=== PATIENT | female | born 1960 | race Caucasian/White ===

== ENCOUNTER → 2021-02-24 14:28 | Outpatient (CLI) | payer OTHER, SELFPAY ==
[2021-02-24 15:14] LABS: Add Manual Diff / Slide Review NO; Basophils Absolute Auto 100 /uL (0-100); Basophils Percent Auto 0.8 % (0-2); Eosinophils Absolute Auto 400 /uL (0-450); Eosinophils Percent Auto 4.4 % (2-4); Hematocrit 43.6 % (36-46); Hemoglobin 14.8 g/dL (12.0-16.0); Lymphocytes Absolute Auto 2900 /uL (1100-4500); Lymphocytes Percent Auto 29.6 % (25-40); Mean Corpuscular HGB Conc 33.8 % (30-36); Mean Corpuscular Hemoglobin 31.2 PG (26-34); Mean Corpuscular Volume 92.4 fL (80-100); Monocytes Absolute Auto 700 /uL (0-900); Monocytes Percent Auto 7.2 % (3-14); Neutrophils Absolute Auto 5700 /uL (1500-7000); Platelet Count 339 X10^3/uL (150-400); Red Blood Cell Count 4.72 X10^6/uL (4.0-5.2); Red Cell Distribution Width 13.4 % (11.6-14.8); White Blood Cell Count 9.8 X10^3/uL (4.5-11.0)
[2021-02-24 15:24] LABS: Hemoglobin A1C% w Est Avg Glu 4.4 % (4.0-6.0)
[2021-02-24 15:40] LABS: Alanine Aminotransferase 35 IU/L (<35); Albumin 4.1 g/dL (3.5-5.0); Albumin Globulin Ratio 1.9 (1.0-2.8); Alkaline Phosphatase 97 U/L (38-126); Aspartate Aminotransferase 24 IU/L (14-36); BUN Creatinine Ratio 15.2 (6-22); Bilirubin Total 0.4 mg/dL (0.2-1.3); Blood Urea Nitrogen 12 mg/dL (7-17); Calcium 9.6 mg/dL (8.4-10.2); Carbon Dioxide 29 mmol/L (22-32); Chloride 106 mmol/L (98-107); Cholesterol 168 mg/dL (140-199); Estimated Glomerular Filt Rate > 60.0 mL/min (>60); Globulin 2.2 g/dL (1.7-4.1); Glucose 77 mg/dL (80-110); HDL Cholesterol 51 mg/dL (40-60); HEMOLYSIS < 15 (0-50); LDL Cholesterol Calculated 92 mg/dL (<100); Sodium 140 mmol/L (137-145); Total Protein 6.3 g/dL (6.3-8.2); Triglycerides 124 mg/dL (35-150)
[2021-02-24 16:05] LABS: Thyroid Stimulating Hormone 2.23 uIU/mL (0.47-4.68)
== END ==
PROVIDERS: Referring Provider Family Medicine; Visit Provider Family Medicine
DX: Z00.00 Encounter for general adult medical examination without abnormal findings (principal)
CPT/HCPCS: 36415; 80053; 80061; 83036; 84443; 85025

== ENCOUNTER 2021-08-11 09:15 | Emergency (ER) | payer OTHER, SELFPAY ==
[2021-08-11] VITALS (13 sets, daily range): BP systolic 174–232; BP diastolic 76–102; PULSE 58–74; RESP 15–36; TEMP 36.6–37.1; O2SAT 95–99; BMI 33.6
--- NOTE | 2021-08-11 09:24 | DI.RAD.S_ITS ---
PROCEDURE: XR CHEST 1V INDICATIONS: chest pain TECHNIQUE: One view of the chest was acquired. COMPARISON: None. FINDINGS: Surgical changes and devices: None. Lungs and pleura: Lungs are clear. No pleural effusions or pneumothorax. Mediastinum: Mediastinal contours appear normal. Heart size is normal. Bones and chest wall: No suspicious bony lesions. Overlying soft tissues appear unremarkable. IMPRESSION: No acute cardiopulmonary disease. Dictated by: Alex Lloyd M.D. on 08/11/2021 at 10:04 Approved by: Alex Lloyd M.D. on 08/11/2021 at 10:04
--- NOTE | 2021-08-11 09:32 | ED.GENADULT ---
HPI - General Adult General Chief complaint: Hypertension Stated complaint: High BP Time Seen by Provider: 08/11/21 09:23 Source: patient Mode of arrival: Ambulatory Limitations: no limitations History of Present Illness HPI narrative: This is a 60-year-old female comes emergency department with complaint of elevated blood pressure for the past 3 days. Patient states she has been averaging 160 systolic for the past month but for the past 3 days has had number in the 200+ range systolic. Patient states she has also had headache for the past 3 days which has not resolved which made her quite anxious so she came in for evaluation. She has a history of hypertension she is on lisinopril as well as metoprolol in the morning and evening took both of these recently and has been taking them regularly. She is also on Celexa, Abilify, Adderall, levothyroxine and D3 an iron supplements. Patient notes that her Adderall was bumped up from 25 mg daily to a 10 mg booster in the afternoons but that she only takes that twice a week. She has not been taking the 10 mg dosage for the past week but is taking her 25 mg Adderall regularly. She has a history gastric bypass, a LINX device in her esophagus and a estephanie in her femur. No prior cardiac surgeries, ablation so or interventions. She smokes 2 cigarettes daily but stopped 2 days ago. One alcoholic drink weekly and THC but no other recreational drugs. She denies any drug allergies. Her primary care is Dr. Malcolm. Related Data Home Medications Medication Instructions Recorded Confirmed aripiprazole 15 mg tablet (Abilify) 15 mg PO DAILY 08/10/21 08/10/21 cholecalciferol (vitamin D3) 125 125 mcg PO DAILY 08/10/21 08/10/21 mcg (5,000 unit) capsule citalopram 40 mg tablet (Celexa) 40 mg PO DAILY tab 08/10/21 08/10/21 dextroamphetamine-amphetamine 10 10 mg PO DAILY 08/10/21 08/10/21 mg tablet (Adderall) diazepam 5 mg tablet (Valium) 5 mg PO BEDTIME PRN 08/10/21 08/10/21 ferrous sulfate 325 mg (65 mg 325 mg PO BID 08/10/21 08/10/21 iron) tablet (Feosol) liothyronine 5 mcg tablet 10 mcg PO DAILY 08/10/21 08/10/21 lisinopril 40 mg tablet 40 mg PO DAILY 08/10/21 08/10/21 metoprolol succinate 50 mg 50 mg PO DAILY 08/10/21 08/10/21 tablet,extended release 24 hr topiramate 25 mg capsule 25 mg PO DAILY 08/10/21 08/10/21 sprinkle,extended release 24 hr Allergies Allergy/AdvReac Type Severity Reaction Status Date / Time No Known Drug Allergies Allergy Verified 08/11/21 09:24 Review of Systems Review of Systems ROS Unobtainable: All systems reviewed & are unremarkable except as noted in HPI and below Patient History Social History Smoking Status: Current every day smoker Smoking Status: Current every day smoker alcohol intake frequency: holidays/special occasions only Substance Use Type: marijuana Exam Narrative Exam Narrative: GEN: well nourished, well appearing female, alert and oriented x 3, patient appears to be in mild distress. HEENT: Atraumatic, pupils are equal round reactive to light, extraocular movements are intact, nares are clear. Throat is clear without any exudates, erythema, tonsillar enlargement or uvular deviation, no facial droop. HEART: Regular rate and rhythm without murmur, clicks, rubs. LUNGS:Lungs clear to auscultation, no wheezes, rales, crackles, chest moves symmetrically ABD:bowel sounds normal, soft, non-tender, no guarding, rebound, rigidity, no masses noted, no hepatosplenomegaly, no bruit or pulsatile mass. :No CVA tenderness MSCL: Non-tender, no muscle atrophy, muscles strength 5/5 upper and lower extremities, full range of motion, normal gait NEURO:CN 2-12 intact, sensation normal Initial Vital Signs Initial Vital Signs: Vital Signs Temperature 98.7 F 08/11/21 09:19 Pulse Rate 68 08/11/21 09:19 Respiratory Rate 22 08/11/21 09:19 Blood Pressure 232/102 H 08/11/21 09:19 Pulse Oximetry 99 08/11/21 09:19 Course Orders Ordered: Discontinued Medications Hydralazine HCl (Hydralazine 10 Mg Tablet) 10 mg PO NOW ONE Stop: 08/11/21 10:20 Last Admin: 08/11/21 10:26 Dose: 10 mg Documented by: JESE Reevaluation(s) Reevaluation #1: Patient's blood pressure has been intervally up and down between 180 and 220s. Given a single dose of oral antihypertensive in the department and has been more persistently trending down words. Head CT, EKG, chest x-ray and labs reviewed with the patient. We discussed she is on Adderall could potentially cause some hypertension and plan to take a break over the weekend to see if this affects her blood pressure at all. She has had a somewhat recent increase in her dosage but not consistently. If her blood pressure continues to stay elevated at this time plan to have her increase her metoprolol to 1 full tablet twice daily. She normally takes 1 tablet in the morning and half tablet in the evenings. Vital Signs Vital signs: Vital Signs - 8 hr 08/11/21 11:01 08/11/21 11:06 08/11/21 11:13 Temperature 98 F Pulse Rate 74 70 65 Respiratory Rate 18 17 Blood Pressure 174/76 H 174/76 H 174/76 H Pulse Oximetry 98 98 Medical Decision Making Lab Data Result diagrams: 08/11/21 09:30 08/11/21 09:30 Labs: Lab Results 08/11/21 08/11/21 08/11/21 Range/Units 09:30 09:30 09:30 WBC 9.4 (4.5-11.0) X10^3/uL RBC 4.59 (4.0-5.2) X10^6/uL Hgb 14.5 (12.0-16.0) g/dL Hct 41.8 (36-46) % MCV 91.1 (80-100) fL MCH 31.6 (26-34) PG MCHC 34.7 (30-36) % RDW 13.4 (11.6-14.8) % Plt Count 260 (150-400) X10^3/uL Neut % (Auto) 65.6 (50-75) % Lymph % (Auto) 25.5 (25-40) % Carroll % (Auto) 6.1 (3-14) % Eos % (Auto) 1.9 L (2-4) % Baso % (Auto) 0.9 (0-2) % Neut # (Auto) 6100 (4038-3759) /uL Lymph # (Auto) 2400 (5142-9102) /uL Carroll # (Auto) 600 (0-900) /uL Eos # (Auto) 200 (0-450) /uL Baso # (Auto) 100 (0-100) /uL PT 10.5 (10.1-12.7) SECONDS INR 1.0 (0.9-1.3) APTT 33 (26.4-36.2) SECONDS Sodium 142 (137-145) mmol/L Potassium 4.0 (3.4-5.1) mmol/L Chloride 110 H (98-107) mmol/L Carbon Dioxide 26 (22-32) mmol/L BUN 19 H (7-17) mg/dL Creatinine 0.73 (0.52-1.04) mg/dL Estimated GFR > 60.0 (>60) mL/min BUN/Creatinine Ratio 26.0 H (6-22) Glucose 94 (80-110) mg/dL Calcium 9.1 (8.4-10.2) mg/dL Magnesium 2.1 (1.6-2.3) mg/dL Total Bilirubin 0.6 (0.2-1.3) mg/dL AST 30 (14-36) IU/L ALT 33 (<35) IU/L Alkaline Phosphatase 78 (38-126) U/L Total Creatine Kinase 56 (30-135) U/L CK-MB (CK-2) TNP CK-MB (CK-2) Rel Index TNP Troponin I < 0.012 (0.01-0.034) ng/mL Total Protein 7.0 (6.3-8.2) g/dL Albumin 4.4 (3.5-5.0) g/dL Globulin 2.6 (1.7-4.1) g/dL Albumin/Globulin Ratio 1.7 (1.0-2.8) Lipase 96 (23-300) U/L Imaging Data Chest x-ray: Radiologist's Impression: Martha White??60??F??1960 ? Allergy/Adv: No Known Drug Allergies (More??) Close Head CT (Signed) Oneida Lloyd - 08/11/21 Chest X-Ray (Signed) Oneida Lloyd - 08/11/21 [facility] [address] [address] XRay Report Signed Patient: Martha White MR#: [id number] : 1960 Acct:[id number] Age/Sex: 60 / F Date of Service: 08/11/21 Loc: ED Accession Number: [id number] ?? Procedure: XR chest 1V Ordering Provider: Rocio Almonte D.O. PROCEDURE:? XR CHEST 1V ? INDICATIONS:? chest pain ? TECHNIQUE:? One view of the chest was acquired.? ? COMPARISON:? None. ? FINDINGS:? ? Surgical changes and devices:? None.? ? Lungs and pleura:? Lungs are clear.? No pleural effusions or pneumothorax.? ? Mediastinum:? Mediastinal contours appear normal.? Heart size is normal.? ? Bones and chest wall:? No suspicious bony lesions.? Overlying soft tissues appear unremarkable.? ? IMPRESSION:? No acute cardiopulmonary disease. ? ? Dictated by: Alex Lloyd M.D. on 08/11/2021 at 10:04 ? ? Approved by: Alex Lloyd M.D. on 08/11/2021 at 10:04?? CT scan - head: Radiologist's Impression: [place] [address] CT Scan Report Signed Patient: Martha White MR#: [id number] : 1960 Acct:[id number] Age/Sex: 60 / F Date of Service: 08/11/21 Loc: ED Accession Number: [id number] ?? Procedure: CT head/brain wo con Ordering Provider: Rocio Almonte D.O. PROCEDURE:? CT HEAD/BRAIN WO CON ? INDICATIONS:? rocha, htn ? TECHNIQUE:? Noncontrast 4.5 mm thick angled axial sections acquired from the foramen magnum to the vertex, with coronal and sagittal reformats.? For radiation dose reduction, the following was used:? automated exposure control, adjustment of mA and/or kV according to patient size.? ? COMPARISON:? None. ? FINDINGS:? Image quality:? Excellent.? ? CSF spaces:? Basal cisterns are patent.? No extra-axial fluid collections.? The ventricles are symmetric in size and shape.? ? Brain:? No intracranial bleeds or masses.? There is mild cerebral volume loss for age, with resultant ventricular and sulcal prominence.? There are mild periventricular and deep white matter chronic small vessel ischemic changes.? There is intracranial internal carotid artery atherosclerosis.? ? Skull and face:? Calvarium and visualized facial bones appear intact, without suspicious lesions.? ? Sinuses:? There is a air-fluid level in the left maxillary sinus.? Mastoid? are clear.? ? IMPRESSION:? ? 1. No acute intracranial abnormalities. ? 2. Cerebral volume loss and chronic microvascular ischemic changes. ? 3.? An air-fluid level in the left maxillary sinus suspicious for sinusitis.? ? Dictated by: Alex Lloyd M.D. on 08/11/2021 at 10:02 ? ? Approved by: Alex Lloyd M.D. on 08/11/2021 at 10:04?? ECG Data Attestation: I personally reviewed and interpreted this ECG as follows: Prior ECG tracings: not available for review Interpretation: Sinus bradycardia rate of 58 ME 158, QRS is 76 and QTC 449. No acute ST elevation depression appreciated. No priors available for comparison. MDM Narrative Medical decision making narrative: This is a 60-year-old female who comes with complaint of hypertension and headache for the past 3 days. Patient states she has pain getting systolic in the 200 range with a diastolic in the 100 range fairly consistently. She states her average is typically closer to 160 systolic. Patient is on antihypertensives, she is also on Adderall she had a dosage increase in the last couple months but does not take it consistently. Patient's head CT, chest x-ray, EKG and labs do not show any end-organ damage. Blood pressure improved with a single dose of oral antihypertensives. At this time plan to adjust patient's medications but would like her to take a break over the weekend from her Adderall to see if this affects her BP at all. Patient feels comfortable with this plan. She also quit smoking recently which may be contributing as well. Return precautions discussed. Discharge Plan Departure Patient Disposition: Home Clinical Impression: Hypertension Instructions: DI for High Blood Pressure Activity Restrictions/Additional Instructions: Follow-up with your physician for recheck. Please call for an appointment. Adderal can cause hypertension and may need to be adjusted or changed to an alternative medication over the intermediate manager if your blood pressure is resistant to medication management. Try stopping your adderal over the weekend and see if your BP improves without medication changes. If your blood pressure continues to be elevated increase your metoprolol to one whole tablet in the morning and one whole tablet in the evening. Please return for severe headaches, passing out, new chest pain or shortness of breath, persistent vomiting, new swelling in your extremities or other new or concerning symptoms Prescriptions: No Action ferrous sulfate [Feosol] 325 mg (65 mg iron) tablet 325 mg PO BID 0RF cholecalciferol (vitamin D3) 125 mcg (5,000 unit) capsule 125 mcg PO DAILY 0RF lisinopril 40 mg tablet 40 mg PO DAILY 0RF metoprolol succinate 50 mg tablet extended release 24 hr 50 mg PO DAILY 0RF aripiprazole [Abilify] 15 mg tablet 15 mg PO DAILY 0RF citalopram [Celexa] 40 mg tablet 40 mg PO DAILY 0RF diazepam [Valium] 5 mg tablet 5 mg PO BEDTIME PRN0RF topiramate 25 mg cap,sprinkle,ER 24hr dose pack 25 mg PO DAILY 0RF liothyronine 5 mcg tablet 10 mcg PO DAILY 0RF dextroamphetamine-amphetamine [Adderall] 10 mg tablet 10 mg PO DAILY 0RF Referrals: Fawad Malcolm MD [Primary Care Provider] -
--- NOTE | 2021-08-11 09:33 | DI.CT.S_ITS ---
PROCEDURE: CT HEAD/BRAIN WO CON INDICATIONS: rocha, htn TECHNIQUE: Noncontrast 4.5 mm thick angled axial sections acquired from the foramen magnum to the vertex, with coronal and sagittal reformats. For radiation dose reduction, the following was used: automated exposure control, adjustment of mA and/or kV according to patient size. COMPARISON: None. FINDINGS: Image quality: Excellent. CSF spaces: Basal cisterns are patent. No extra-axial fluid collections. The ventricles are symmetric in size and shape. Brain: No intracranial bleeds or masses. There is mild cerebral volume loss for age, with resultant ventricular and sulcal prominence. There are mild periventricular and deep white matter chronic small vessel ischemic changes. There is intracranial internal carotid artery atherosclerosis. Skull and face: Calvarium and visualized facial bones appear intact, without suspicious lesions. Sinuses: There is a air-fluid level in the left maxillary sinus. Mastoid are clear. IMPRESSION: 1. No acute intracranial abnormalities. 2. Cerebral volume loss and chronic microvascular ischemic changes. 3. An air-fluid level in the left maxillary sinus suspicious for sinusitis. Dictated by: Alex Lloyd M.D. on 08/11/2021 at 10:02 Approved by: Alex Lloyd M.D. on 08/11/2021 at 10:04
--- NOTE | 2021-08-11 09:41 | PC.NURSE ---
reports RUSSELL with this hypertension episode over last couple days. pain 7-8/10 denies nausea, blurry vision or vison changes. FAST negative
[2021-08-11 09:49] LABS: Prothrombin Time 10.5 SECONDS (10.1-12.7)
[2021-08-11 09:50] LABS: Add Manual Diff / Slide Review NO; Basophils Absolute Auto 100 /uL (0-100); Basophils Percent Auto 0.9 % (0-2); Eosinophils Absolute Auto 200 /uL (0-450); Eosinophils Percent Auto 1.9 % (2-4); Hematocrit 41.8 % (36-46); Hemoglobin 14.5 g/dL (12.0-16.0); Lymphocytes Absolute Auto 2400 /uL (1100-4500); Lymphocytes Percent Auto 25.5 % (25-40); Mean Corpuscular HGB Conc 34.7 % (30-36); Mean Corpuscular Hemoglobin 31.6 PG (26-34); Mean Corpuscular Volume 91.1 fL (80-100); Monocytes Absolute Auto 600 /uL (0-900); Monocytes Percent Auto 6.1 % (3-14); Neutrophils Absolute Auto 6100 /uL (1500-7000); Neutrophils Percent Auto 65.6 % (50-75); Platelet Count 260 X10^3/uL (150-400); Red Blood Cell Count 4.59 X10^6/uL (4.0-5.2); Red Cell Distribution Width 13.4 % (11.6-14.8); White Blood Cell Count 9.4 X10^3/uL (4.5-11.0)
[2021-08-11 09:52] LABS: PTT Partial Thromboplastin Tim 33 SECONDS (26.4-36.2)
[2021-08-11 09:58] LABS: Alanine Aminotransferase 33 IU/L (<35); Albumin 4.4 g/dL (3.5-5.0); Albumin Globulin Ratio 1.7 (1.0-2.8); Alkaline Phosphatase 78 U/L (38-126); Aspartate Aminotransferase 30 IU/L (14-36); Bilirubin Total 0.6 mg/dL (0.2-1.3); Blood Urea Nitrogen 19 mg/dL (7-17); Calcium 9.1 mg/dL (8.4-10.2); Carbon Dioxide 26 mmol/L (22-32); Chloride 110 mmol/L (98-107); Creatine Kinase 56 U/L (30-135); Estimated Glomerular Filt Rate > 60.0 mL/min (>60); Globulin 2.6 g/dL (1.7-4.1); Glucose 94 mg/dL (80-110); HEMOLYSIS 19 (0-50); Lipase 96 U/L (23-300); Magnesium 2.1 mg/dL (1.6-2.3); Sodium 142 mmol/L (137-145)
[2021-08-11 10:07] LABS: Troponin I < 0.012 ng/mL (0.01-0.034)
[2021-08-11] MEDS: HYDRALAZINE 10 MG TABLET PO (10:26)
== END 2021-08-11 11:13 | disposition home or self-care (01) ==
PROVIDERS: Emergency Provider Emergency Medicine; PCP Family Medicine
DX: I10 Essential (primary) hypertension (principal); R51.9 Headache, unspecified; F17.200 Nicotine dependence, unspecified, uncomplicated
CPT/HCPCS: 36415; 70450; 71045; 80053; 82550; 83690; 83735; 84484; 85025; 85610; 85730; 93005; 99284

== ENCOUNTER 2022-01-09 10:49 | Emergency (ER) | payer OTHER, SELFPAY ==
[2022-01-09 11:19] VITALS: BP 177/85; PULSE 62; RESP 16; TEMP 36.3; O2SAT 99; BMI 34.7
--- NOTE | 2022-01-09 11:26 | DI.RAD.S_ITS ---
PROCEDURE: XR KNEE RT 3V INDICATIONS: Right knee pain TECHNIQUE: 3 views of the knee were acquired. COMPARISON: None. FINDINGS: Bones: No fractures or dislocations. No suspicious bony lesions. Femoral intramedullary estephanie. Soft tissues: No joint effusion. No suspicious soft tissue calcifications. IMPRESSION: No evidence acute bony abnormality of the right knee. If clinical suspicion and/or symptoms persist, further assessment with repeat plain films, or advanced imaging (e.g., CT, MRI, or bone scan) may be helpful for further assessment. Dictated by: Jasiel Mason M.D. on 01/09/2022 at 12:00 Approved by: Jasiel Mason M.D. on 01/09/2022 at 12:01
--- NOTE | 2022-01-09 11:27 | ED.EXTPRO ---
HPI - Extremity Problem General Chief complaint: Extremity Problem,Nontraumatic Stated complaint: HURT RT KNEE YESTERDAY Time Seen by Provider: 01/09/22 11:24 Source: patient Mode of arrival: Wheelchair History of Present Illness HPI Narrative: 61F daily smoker with history of hypertension presents with significant right knee pain over the past day. She denies any significant injury but does state that she was walking her dog yesterday and over the course of the night developed increasing pain. She denies numbness or tingling. She states the pain is worse with ambulation and improves with rest. She does complain of some moderate swelling but denies any redness, warmth or red streaks. She is had chronic knee pain and states that previously she had improved with steroid injections. She does have an orthopedist down at [facility] in [place]. She is otherwise well and free of complaint Related Data Home Medications Medication Instructions Recorded Confirmed aripiprazole 15 mg tablet (Abilify) 15 mg PO DAILY 08/10/21 08/10/21 cholecalciferol (vitamin D3) 125 125 mcg PO DAILY 08/10/21 08/10/21 mcg (5,000 unit) capsule citalopram 40 mg tablet (Celexa) 40 mg PO DAILY 08/10/21 08/10/21 dextroamphetamine-amphetamine 10 10 mg PO DAILY 08/10/21 08/10/21 mg tablet (Adderall) diazepam 5 mg tablet (Valium) 5 mg PO BEDTIME PRN 08/10/21 08/10/21 ferrous sulfate 325 mg (65 mg 325 mg PO BID 08/10/21 08/10/21 iron) tablet (Feosol) liothyronine 5 mcg tablet 10 mcg PO DAILY 08/10/21 08/10/21 lisinopril 40 mg tablet 40 mg PO DAILY 08/10/21 08/10/21 metoprolol succinate 50 mg 50 mg PO DAILY 08/10/21 08/10/21 tablet,extended release 24 hr topiramate 25 mg capsule 25 mg PO DAILY 08/10/21 08/10/21 sprinkle,extended release 24 hr Previous Rx's Medication Instructions Recorded hydrocodone 5 mg-acetaminophen 325 1 tab PO Q4-6H PRN pain #10 tabs 01/09/22 mg tablet Allergies Allergy/AdvReac Type Severity Reaction Status Date / Time No Known Drug Allergies Allergy Verified 01/09/22 11:32 Review of Systems Review of Systems Narrative: GENERAL: Denies chills, fatigue, malaise, fever, sweats. HEENT: Denies sinus pain, ear pain, sore throat, difficulty swallowing, dizziness. RESPIRATORY: Denies dyspnea, cough, wheezing, hemoptysis, sputum. CARDIOVASCULAR: Denies chest pain, palpitations, orthopnea, edema, GASTROINTESTINAL: Denies nausea, vomiting, abdominal pain, diarrhea, constipation, melena. : Denies dysuria, frequency, incontinence, hematuria, urinary retention. MUSCULOSKELETAL: See HPI SKIN: Denies rash, skin lesions, or other NEUROLOGIC: Denies weakness, headache, numbness, change in speech, confusion, seizures, incoordination. PSYCHIATRIC: No concerning psychosocial issues. 12 point review of systems is negative except for those stated above Patient History Social History Smoking Status: Current every day smoker Smoking Status: Current every day smoker alcohol intake frequency: 0-2 drinks per day Substance Use Type: marijuana Exam Narrative Exam Narrative: GENERAL: [61] year old patient appears stated age. Well-developed patient, in mild distress. HEAD: Atraumatic. Normocephalic. EYES: Pupils equal round and reactive. Extraocular motions intact. No scleral icterus. No injection or drainage. ENT: Nose without bleeding, purulent drainage. Throat without erythema, tonsillar hypertrophy or exudate. Airway patent. NECK: Trachea midline. Non tender CARDIOVASCULAR: Regular rate and rhythm without murmurs, gallops, or rubs. RESPIRATORY: Clear to auscultation. Breath sounds equal bilaterally. No wheezes, rales, or rhonchi. GASTROINTESTINAL: Abdomen soft, non-tender, nondistended. EXTREMITIES: mild effusion, generally painful to touch, no redness, warmth or obvious ligamentous laxity BACK: Nontender without deformity or crepitance. No flank tenderness. NEURO: AOx3. SKIN: No rash or erythema of visible areas Initial Vital Signs Initial Vital Signs: Vital Signs Temperature 97.4 F L 01/09/22 11:19 Pulse Rate 62 01/09/22 11:19 Respiratory Rate 16 01/09/22 11:19 Blood Pressure 177/85 H 01/09/22 11:19 Pulse Oximetry 99 01/09/22 11:19 Oxygen Delivery Method 01/09/22 11:19 Procedures Orthopedic Splinting/Casting Injury #1: Lower Extremity Injury Location: knee Lower Extremity Immobilizer: knee immobilizer Post splinting neuro exam: intact Post splinting vascular exam: intact Placed by: Nursing Course Orders Ordered: ED Orders 01/09/22 11:26 XR knee RT 3V Stat 01/09/22 12:07 US periph venous low extrem rt Stat Vital Signs Vital signs: Vital Signs - 8 hr 01/09/22 11:19 Temperature 97.4 F L Pulse Rate 62 Respiratory Rate 16 Blood Pressure 177/85 H Pulse Oximetry 99 Oxygen Delivery Method Room Air MDM - Extremity (Nontraumatic) Imaging Data Extremity x-ray #1: Radiologist's Impression: Martha White??61??F??1960 ? Allergy/Adv: No Known Drug Allergies (More??) Close Knee X-Ray (Signed) Jasiel Mason - 01/09/22 EKG Rpt. 08/11/[address] (Signed) Oneida Lloyd - 08/11/21 Chest X-Ray (Signed) Oneida Lloyd - 08/11/21 Launch?[place] [address] XRay Report Signed Patient: Martha White MR#: [id number] : 1960 Acct:[id number] Age/Sex: 61 / F Date of Service: 01/09/22 Loc: ED Accession Number: [id number] ?? Procedure: XR knee RT 3V Ordering Provider: Werner Byrnes D.O. PROCEDURE:? XR KNEE RT 3V ? INDICATIONS:? Right knee pain ? TECHNIQUE:? 3 views of the knee were acquired.? ? COMPARISON:? None. ? FINDINGS:? ? Bones:? No fractures or dislocations.? No suspicious bony lesions.? Femoral intramedullary estephanie. ? Soft tissues:? No joint effusion.? No suspicious soft tissue calcifications.? ? ? IMPRESSION:? No evidence acute bony abnormality of the right knee. ? If clinical suspicion and/or symptoms persist, further assessment with repeat plain films, or advanced imaging (e.g., CT, MRI, or bone scan) may be helpful for further assessment. ? Dictated by: Jasiel Mason M.D. on 01/09/2022 at 12:00 ? ? Approved by: Jasiel Mason M.D. on 01/09/2022 at 12:01 ? US - DVT: Radiologist's Impression: No DVT, small Ortiz's Cyst noted Discharge Plan Departure Patient Disposition: Home Clinical Impression: Knee joint injury, Ortiz cyst Instructions: DI for Knee Pain Activity Restrictions/Additional Instructions: *You have been diagnosed with [acute on chronic right knee pain with small Ortiz cyst and possible meniscal injury] *What to do: *Please continue to take your regular medications as directed. [ x] New medication prescriptions sent to your pharmacy: [ [facility] in [place]] [ ] New medication written as a paper prescription [ ] No new medications given * as we discussed I have included contact information for local orthopedics, please call the office later today and let them know you were seen in the emergency department and we would like you seen in follow-up for evaluation of your knee *If you do not have a primary care provider please contact the [facility] Resource line at [phone]. They will ask some questions about your medical history and help get you set up with a doctor in the community. *Return to Emergency Department if you should have any new, worsening or concerning symptoms, such as [fever greater than 101 F, shaking chills, worsening pain, persistent vomiting or other bothersome symptoms] You have been prescribed a short course of narcotic medications. These are potentially dangerous and addictive medications that should be used carefully. While on these medications you cannot drive or operate heavy machinery. Additionally, you cannot sign legal documents or perform any duties such as this. Many people get constipated on narcotic medications so it would be advisable to discuss stool softeners with the pharmacist when you order picker/assembler your prescription. Please understand that we cannot provide further refills of narcotics or controlled substances through the ED and your pain management will need to be through your Primary Care Provider Prescriptions: New hydrocodone-acetaminophen 5-325 mg tablet 1 tab PO Q4-6H PRN (Reason: pain) Qty: 10 0RF No Action ferrous sulfate [Feosol] 325 mg (65 mg iron) tablet 325 mg PO BID cholecalciferol (vitamin D3) 125 mcg (5,000 unit) capsule 125 mcg PO DAILY lisinopril 40 mg tablet 40 mg PO DAILY metoprolol succinate 50 mg tablet extended release 24 hr 50 mg PO DAILY aripiprazole [Abilify] 15 mg tablet 15 mg PO DAILY citalopram [Celexa] 40 mg tablet 40 mg PO DAILY diazepam [Valium] 5 mg tablet 5 mg PO BEDTIME PRN topiramate 25 mg cap,sprinkle,ER 24hr dose pack 25 mg PO DAILY liothyronine 5 mcg tablet 10 mcg PO DAILY dextroamphetamine-amphetamine [Adderall] 10 mg tablet 10 mg PO DAILY Referrals: Fawad Malcolm MD [Primary Care Provider] - Bobo Edwards MD [Physician] - Visit Report Forms: Patient Portal/API
--- NOTE | 2022-01-09 12:07 | DI.US.S_ITS ---
PROCEDURE: US PERIPH VENOUS LOW EXTREM RT INDICATIONS: KNEE PAIN TECHNIQUE: Real-time imaging, as well as color and pulse Doppler interrogation, were performed of the lower extremity deep veins from the inguinal ligament to the popliteal fossa. COMPARISON: None. FINDINGS: The common femoral, femoral and popliteal veins are normally compressible, and free of intraluminal thrombus. Color and pulse Doppler demonstrate normal phasic intraluminal flow. There is normal augmentation response to distal compression maneuver. Note is made of a Ortiz's cyst measuring 3.5 x 0.8 x 1.2 cm. IMPRESSION: Negative for deep venous thrombosis. Dictated by: Frank Escalante M.D. on 01/09/2022 at 11:43 Approved by: Frank Escalante M.D. on 01/09/2022 at 11:43
== END 2022-01-09 13:08 | disposition home or self-care (01) ==
PROVIDERS: Emergency Provider Emergency Medicine; PCP Family Medicine
DX: M71.21 Synovial cyst of popliteal space [Baker], right knee (principal)
CPT/HCPCS: 73562; 93971; 99282; 99283

== ENCOUNTER → 2023-07-04 07:44 | Outpatient (CLI) | payer OTHER, SELFPAY ==
--- NOTE | 2023-07-04 07:45 | DI.MG.S_ITS ---
BILATERAL DIGITAL SCREENING MAMMOGRAM 3D/2D WITH CAD: 07/04/2023 CLINICAL: Routine screening. Family history of breast cancer. Comparison is made to exams dated: 06/03/2022 mammogram, 04/25/2021 mammogram, and 12/31/2019 mammogram - Outside facility. There are scattered areas of fibroglandular density in both breasts (category b / 25%-50% glandular tissue). Current study was also evaluated with a Computer Aided Detection (CAD) system. There is a biopsy clip in both breasts. No significant masses, calcifications, or other findings are seen in either breast. There has been no significant interval change. IMPRESSION: NEGATIVE There is no mammographic evidence of malignancy. A 1 year screening mammogram is recommended. Based on the Tyrer Cuzick model (a risk assessment model) the patient's lifetime risk is 14.6% and her 10 year risk is 6.5%. According to the ACR, ACS, and NCCN guidelines, an annual breast MRI exam along with mammogram is recommended if the patient's lifetime risk is 20% or greater. This exam was interpreted at Station ID: [id number]. NOTE: For mammograms, a report in lay terms will be sent to the patient. Approximately 15% of breast malignancies will not be visualized mammographically. In the management of a palpable breast mass, a negative mammogram must not discourage biopsy of a clinically suspicious lesion. Electronically Signed By: Curt rojo/harry:07/04/2023 15:21:06 letter sent: Normal Exam ACR BI-RADS Category 1: Negative [id number]
== END ==
LOC: MAMMO 07:44
PROVIDERS: PCP Family Medicine; Referring Provider Family Medicine; Visit Provider Family Medicine
DX: Z12.31 Encounter for screening mammogram for malignant neoplasm of breast (principal); Z80.3 Family history of malignant neoplasm of breast; R92.323 Mammographic fibroglandular density, bilateral breasts
CPT/HCPCS: 77063; 77067

== ENCOUNTER → 2023-07-06 07:00 | Outpatient (CLI) | payer OTHER, SELFPAY ==
[2023-07-06 07:55] LABS: Add Manual Diff / Slide Review NO; Basophils Absolute Auto 100 /uL (0-100); Basophils Percent Auto 0.8 % (0-2); Eosinophils Absolute Auto 200 /uL (0-450); Eosinophils Percent Auto 2.2 % (2-4); Hematocrit 42.6 % (36-46); Hemoglobin 14.6 g/dL (12.0-16.0); Lymphocytes Absolute Auto 2600 /uL (1100-4500); Lymphocytes Percent Auto 32.3 % (25-40); Mean Corpuscular HGB Conc 34.3 % (30-36); Mean Corpuscular Volume 90.4 fL (80-100); Monocytes Absolute Auto 500 /uL (0-900); Monocytes Percent Auto 6.2 % (3-14); Neutrophils Absolute Auto 4700 /uL (1500-7000); Neutrophils Percent Auto 58.5 % (50-75); Platelet Count 236 X10^3/uL (150-400); Red Blood Cell Count 4.71 X10^6/uL (4.0-5.2); Red Cell Distribution Width 13.4 % (11.6-14.8)
[2023-07-06 08:02] LABS: Hemoglobin A1C% w Est Avg Glu 4.8 % (4.0-6.0)
[2023-07-06 08:37] LABS: Iron 127 ug/dL (37-170)
[2023-07-06 08:38] LABS: Alanine Aminotransferase 64 IU/L (<35); Albumin 3.8 g/dL (3.5-5.0); Albumin Globulin Ratio 1.6 (1.0-2.8); Alkaline Phosphatase 97 U/L (38-126); Aspartate Aminotransferase 43 IU/L (14-36); BUN Creatinine Ratio 22.4 (6-22); Blood Urea Nitrogen 17 mg/dL (7-17); Calcium 9.3 mg/dL (8.4-10.2); Carbon Dioxide 25 mmol/L (22-32); Chloride 110 mmol/L (98-107); Cholesterol 98 mg/dL (140-199); Estimated Glomerular Filt Rate > 60 mL/min (>60); Globulin 2.4 g/dL (1.7-4.1); Glucose 80 mg/dL (80-110); HDL Cholesterol 50 mg/dL (40-60); HEMOLYSIS < 15 (0-50); LDL Cholesterol Calculated 35 mg/dL (<100); Potassium 3.6 mmol/L (3.4-5.1); Sodium 142 mmol/L (137-145); Total Protein 6.2 g/dL (6.3-8.2); Triglycerides 65 mg/dL (35-150)
[2023-07-06 08:49] LABS: Vitamin D 25 Hydroxy (D3) 44.3 ng/mL (30.0-100.0)
[2023-07-06 09:01] LABS: TSH w/ Reflex to FT4 0.82 uIU/mL (0.47-4.68)
[2023-07-06 09:21] LABS: Vitamin B12 313 pg/mL (239-931)
[2023-07-11 01:47] LABS: Vitamin B1 135.5 nmol/L (66.5-200.0)
== END ==
PROVIDERS: PCP Family Medicine; Referring Provider Family Medicine; Visit Provider Family Medicine
DX: G43.909 Migraine, unspecified, not intractable, without status migrainosus (principal); E66.9 Obesity, unspecified; E03.9 Hypothyroidism, unspecified; I10 Essential (primary) hypertension; E61.1 Iron deficiency; Z98.84 Bariatric surgery status
CPT/HCPCS: 36415; 80053; 80061; 82306; 82607; 83036; 83540; 84425; 84443; 85025

== ENCOUNTER → 2023-08-03 11:45 | Outpatient (CLI) | payer OTHER, SELFPAY ==
[2023-08-03 13:27] LABS: Alanine Aminotransferase 64 IU/L (<35); Albumin Globulin Ratio 1.6 (1.0-2.8); Alkaline Phosphatase 118 U/L (38-126); Aspartate Aminotransferase 45 IU/L (14-36); BUN Creatinine Ratio 18.3 (6-22); Blood Urea Nitrogen 13 mg/dL (7-17); Calcium 9.5 mg/dL (8.4-10.2); Carbon Dioxide 25 mmol/L (22-32); Chloride 110 mmol/L (98-107); Estimated Glomerular Filt Rate > 60 mL/min (>60); Globulin 2.5 g/dL (1.7-4.1); Glucose 87 mg/dL (80-110); HEMOLYSIS < 15 (0-50); Potassium 3.8 mmol/L (3.4-5.1); Sodium 139 mmol/L (137-145); Total Protein 6.5 g/dL (6.3-8.2)
== END ==
PROVIDERS: PCP Family Medicine; Referring Provider Family Medicine; Visit Provider Family Medicine
DX: R79.89 Other specified abnormal findings of blood chemistry (principal)
CPT/HCPCS: 36415; 80053

== ENCOUNTER → 2024-01-01 09:58 | Outpatient (CLI) | payer OTHER, SELFPAY ==
--- NOTE | 2024-01-01 10:00 | DI.RAD.S_ITS ---
PROCEDURE: XR FOOT LT MIN 3V INDICATIONS: Injury of left great toe TECHNIQUE: 3 views of the foot were acquired. COMPARISON: None. FINDINGS: Bones: No fractures or dislocations. No suspicious bony lesions. Hallux valgus, bunion, mild 1st MTP degenerative change. Soft tissues: No tibiotalar joint effusion. Achilles tendon appears normal. IMPRESSION: 1. No acute bony abnormality. 2. Elix valgus, bunion, mild 1st MTP degenerative change. Dictated by: Jasiel Mason M.D. on 01/01/2024 at 10:37 Approved by: Jasiel Mason M.D. on 01/01/2024 at 10:38
== END ==
PROVIDERS: PCP Family Medicine; Referring Provider Family Medicine; Visit Provider Family Medicine
DX: S99.922A Unspecified injury of left foot, initial encounter (principal); M20.12 Hallux valgus (acquired), left foot; M21.612 Bunion of left foot; X58.XXXA Exposure to other specified factors, initial encounter
CPT/HCPCS: 73630

== ENCOUNTER → 2024-01-15 06:56 | Outpatient (CLI) | payer OTHER, SELFPAY ==
[2024-01-15 08:32] LABS: Alanine Aminotransferase 79 IU/L (<35); Albumin 3.6 g/dL (3.5-5.0); Albumin Globulin Ratio 1.6 (1.0-2.8); Alkaline Phosphatase 108 U/L (38-126); Aspartate Aminotransferase 59 IU/L (14-36); BUN Creatinine Ratio 19.3 (6-22); Blood Urea Nitrogen 16 mg/dL (7-17); Calcium 8.9 mg/dL (8.4-10.2); Carbon Dioxide 24 mmol/L (22-32); Chloride 111 mmol/L (98-107); Cholesterol 112 mg/dL (140-199); Estimated Glomerular Filt Rate > 60 mL/min (>60); Globulin 2.3 g/dL (1.7-4.1); Glucose 87 mg/dL (80-110); HDL Cholesterol 57 mg/dL (40-60); HEMOLYSIS < 15 (0-50); LDL Cholesterol Calculated 44 mg/dL (<100); Potassium 3.8 mmol/L (3.4-5.1); Sodium 140 mmol/L (137-145); Total Protein 5.9 g/dL (6.3-8.2); Triglycerides 57 mg/dL (35-150)
[2024-01-15 09:05] LABS: TSH w/ Reflex to FT4 0.91 uIU/mL (0.47-4.68)
== END ==
PROVIDERS: PCP Family Medicine; Referring Provider Family Medicine; Visit Provider Family Medicine
DX: R79.89 Other specified abnormal findings of blood chemistry (principal); E78.5 Hyperlipidemia, unspecified; E03.9 Hypothyroidism, unspecified
CPT/HCPCS: 36415; 80053; 80061; 84443

== ENCOUNTER → 2024-01-25 06:40 | Outpatient (CLI) | payer OTHER, SELFPAY ==
--- NOTE | 2024-01-25 06:41 | DI.US.S_ITS ---
PROCEDURE: US ABDOMEN LIMITED INDICATIONS: ELEVATED LFTs TECHNIQUE: Real-time scanning was performed of the abdominal and retroperitoneal organs, with image documentation. COMPARISON: None. FINDINGS: Liver: Liver is normal in size. Simple cyst is present measuring 1.2 cm. Gallbladder: Absent. Biliary ducts: Intrahepatic bile ducts are non-dilated. Extrahepatic bile duct caliber measures 8.4 mm. Normal is 6-7 mm or less in diameter, or 10 mm or less post-cholecystectomy. IMPRESSION: Simple hepatic cysts. Dictated by: Clarissa Hooper M.D. on 01/25/2024 at 13:33 Approved by: Clarissa Hooper M.D. on 01/25/2024 at 13:33
[2024-01-25 09:23] LABS: Ferritin 314 ng/mL (11-264)
[2024-01-25 10:31] LABS: HEMOLYSIS < 15 (0-50); Iron 128 ug/dL (37-170)
[2024-01-25 10:42] LABS: Percent Iron Saturation 44 % (15-50); Total Iron Binding Capacity 291 ug/dL (265-497); Transferrin 216 mg/dL (206-381)
[2024-01-26 06:12] LABS: HBsAg Screen Negative (Negative); Hepatitis A Antibody IgM Negative (Negative); Hepatitis B Core Antibody IgM Negative (Negative); Hepatitis C Antibody Non Reactive (Non Reactive)
== END ==
LOC: US 06:40
PROVIDERS: PCP Family Medicine; Referring Provider Family Medicine; Visit Provider Family Medicine
DX: R79.89 Other specified abnormal findings of blood chemistry (principal); K76.89 Other specified diseases of liver
CPT/HCPCS: 36415; 76705; 80074; 82728; 83540; 83550

== ENCOUNTER → 2024-03-07 07:47 | Outpatient (CLI) | payer OTHER, SELFPAY ==
--- NOTE | 2024-03-07 07:48 | DI.CT.S_ITS ---
PROCEDURE: CT KIDNEY URETER BLADDER (KUB) INDICATIONS: 63 y/o F w/ flank pain, h/o kidney stones. TECHNIQUE: Axial sections were acquired from the lung bases to the pubic symphysis. Coronal and sagittal reformats were performed. For radiation dose reduction, the following was used: automated exposure control, adjustment of mA and/or kV according to patient size. COMPARISON: None. FINDINGS: Image quality: Excellent Lower chest: Unremarkable Multiple small hypoattenuating lesions within the liver, incompletely evaluated and may represent hepatic cysts. The gallbladder is not definitely visualized, and may be surgically absent. The pancreas, spleen, are unremarkable. The left and the right adrenal glands unremarkable. Right kidney: 7 mm right renal stone (Hounsfield unit of 1049). No hydronephrosis of the right kidney. Small hypoattenuating lesion in the anterior mid zone, likely representing a cyst. The right ureter is not well visualized. Multiple punctate left renal stone. Left renal cyst. No left hydronephrosis. The left ureter is not well visualized. The bladder is under distended. The uterus is not definitely visualized, may be surgically absent. No adnexal masses. GI: Large stool burden. Patient is status post cholecystectomy. Patient is status post gastric bypass. Metallic density at the distal esophagus, favoring postprocedural. No bowel obstruction, or definite bowel wall thickening. Mild calcification of the abdominal aorta. No abdominal aortic aneurysm. No abdominal or pelvic lymphadenopathy. Abdominal wall: Unremarkable Bones: Intramedullary estephanie in the right femur, partially visualized. IMPRESSION: 1. Limited evaluation given noncontrast exam. 2. Bilateral renal stones. No hydronephrosis. 3. Large stool burden. 4. Status post gastric bypass. Metallic density at the distal esophagus, favoring postprocedural. Recommend clinical correlation. Dictated by: Gabby Arnold M.D. on 03/07/2024 at 14:43 Approved by: Gabby Arnold M.D. on 03/07/2024 at 14:55
== END ==
LOC: CT 07:47
PROVIDERS: PCP Family Medicine; Referring Provider Urology; Visit Provider Urology
DX: N20.0 Calculus of kidney (principal); R10.9 Unspecified abdominal pain; Z87.442 Personal history of urinary calculi; Z90.49 Acquired absence of other specified parts of digestive tract; Z98.84 Bariatric surgery status
CPT/HCPCS: 74176

== ENCOUNTER → 2024-05-08 08:46 | Outpatient (CLI) | payer OTHER, SELFPAY ==
[2024-05-08 09:38] LABS: Alanine Aminotransferase 82 IU/L (<35); Albumin 3.9 g/dL (3.5-5.0); Albumin Globulin Ratio 1.9 (1.0-2.8); Alkaline Phosphatase 108 U/L (38-126); Aspartate Aminotransferase 75 IU/L (14-36); BUN Creatinine Ratio 21.3 (6-22); Bilirubin Total 0.8 mg/dL (0.2-1.3); Blood Urea Nitrogen 16 mg/dL (7-17); Calcium 9.4 mg/dL (8.4-10.2); Carbon Dioxide 23 mmol/L (22-32); Chloride 110 mmol/L (98-107); Estimated Glomerular Filt Rate > 60 mL/min (>60); Globulin 2.1 g/dL (1.7-4.1); Glucose 87 mg/dL (80-110); HEMOLYSIS < 15 (0-50); Potassium 3.5 mmol/L (3.4-5.1); Sodium 140 mmol/L (137-145)
== END ==
PROVIDERS: PCP Family Medicine; Referring Provider Family Medicine; Visit Provider Family Medicine
DX: R79.89 Other specified abnormal findings of blood chemistry (principal)
CPT/HCPCS: 36415; 80053

== ENCOUNTER → 2024-07-23 12:59 | Outpatient (CLI) | payer BC, SELFPAY ==
--- NOTE | 2024-07-24 10:34 | DIET.CONS ---
Dietary Consultation Note Admission Date: Assessment: 63 y F referred to dietitian for obesity. Pt had duodenal switch bypass surgery around 2001. Has weight loss then regain after surgery. Then went on Ozempic and now pt is at goal weight. Has been stable at goal weight so far and continues on low dose Ozempic of .25 mg. Pt does express some worry about maintaining weight and not regaining after working so hard to get to goal weight. Primary reason for appt is confusion over dietary patterns to follow for kidney stones, stage 2 CKD, and adequate protein intake with Ozempic/hx gastric bypass. Pt already aware she doesn't drink enough water. Just got 64 oz water bottle, but still struggling to get fluid intake. Hx of kidney stones in 2020 resulting in ER visits and stone removal. Unknown stone composition. Now has stones again and scheduled removal of them. No 24 hr urine test results to review. Diet recall: 4am coffee and half and half 12oz Protein shake 20 g-30 g protein - [employer] 7-8am- half bagel w/ 1 tbsp cream cheese or cottage cheese ? c and pineapple Midday: twister frame tender or chicken salad (3 oz) and 1-2 oranges 3-4p:cereal (1/2 c cereal, 1/2 c milk), another 12 oz coffee with half and half Juice-orange or pineapples 12 oz Dinner-salad with chicken or turkey or beef palmful 2-3 oz with various sides 4 oz chocolate milk Est protein intake 60-70 g/d +8 oz water total fluids est at 48 oz Supplements are vit D and iron only. Avocado allergy. Doesn't like fish. Denies N/V/C/D Activity: walks 1.5-2 miles 3x/wk. has recently gotten weights (3lb,5lb, 10lb and is going to incorporate resistance exercises in) Ht: 5 ft Wt: 119 lb and 6 oz BMI: 23.3 Nutrition Diagnosis: Food and nutrition related knowledge deficit r/t limited formal nutrition educ on this topic aeb pt reporting confusion over dietary recc for stabilizing weight/muscle mass related to Ozempic and diet for kidney stones/CKD2 Interventions: Discussed the following topics and provided appropriate handouts: -Nutrition for kidney stones (w/o confirmed 24 hr urine test/litholink or known stone composition) Including: Adequate hydration, limit sodium intake to 2-1.5 g/d, moderate animal protein intake/plant based protein sources, adequate calcium intake 1200 mg/day, educ on very high oxalate foods (spinach, rhubarb, beets, potato chips, burundian fries) and vit c supplements, increasing fruit and veg intake (5+ servings/day), citrate acid -Reassured pt that she is at appropriate weight, no further weight loss needed, advised for weight stabilization and focus on adequate caloric consumption -Estimated protein needs Goals: 1. Increase fluid intake. Pt got a 64 oz fluid water bottle, will start to carry it around with her. Additionally enjoys the sparkling water no sugar, will use 1-2 12 oz cans to help contribute to fluid intake 2. Pt is doing about 2-3 servings fruits and veg currently. Will add in 2 additional servings to increase fruit and veg intake 3. Pt uses lots of canned/bottled sauces/condiments in foods. Will do a 2 day sodium log to get an idea of current intake. If intake >2 g, discussed idea of making homemade sauces (i.e. pasta sauce). Pt enjoys cooking and open to this idea. Monitoring/Evaluations: f/u in Electronically Signed by: Beba Amos 07/24/24 10:34 Clinical Dietitian [address] [id number]
== END ==
PROVIDERS: PCP Family Medicine; Referring Provider Family Medicine
DX: E66.9 Obesity, unspecified (principal); Z71.3 Dietary counseling and surveillance; Z68.23 Body mass index [BMI] 23.0-23.9, adult; Z79.85 Long-term (current) use of injectable non-insulin antidiabetic drugs; Z98.84 Bariatric surgery status; Z87.442 Personal history of urinary calculi
CPT/HCPCS: 97802

== ENCOUNTER → 2024-08-21 13:59 | Outpatient (CLI) | payer BC, SELFPAY ==
--- NOTE | 2024-08-21 14:06 | DI.RAD.S_ITS ---
PROCEDURE: XR KUB INDICATIONS: History of nephrolithiasis TECHNIQUE: One view of the abdomen acquired. COMPARISON: [facility], CT, CT KIDNEY URETER BLADDER (KUB), 03/07/2024, 7:57. FINDINGS: Surgical changes and devices: Gastric band. Right femur intramedullary estephanie. Bowel: Prominent bowel gas in the mid abdomen. Scattered small bowel and colonic gas. No air-fluid levels are seen. Soft tissues: Small nonobstructing right kidney stone measuring 0.4 cm is seen. The other previously seen nonobstructing kidney stones are not identified which could be due to their small size. No suspicious abdominal calcifications. Visualized solid organ contours appear normal in size. Bones: No suspicious bony lesions. IMPRESSION: 1. Small nonobstructing right kidney stone is seen. Other kidney stones seen on prior CT KUB are not appreciated. 2. Prominent bowel in the mid abdomen. Dictated by: Curt Warner M.D. on 08/21/2024 at 20:21 Approved by: Curt Warner M.D. on 08/21/2024 at 20:25
--- NOTE | 2024-08-21 14:06 | DI.MG.S_ITS ---
MM screening mammo BI: 08/21/2024. BI-RADS: 2 CLINICAL: 63-year old female for bilateral screening mammogram. Tyrer-Cuzick lifetime risk of 17.0%. Current reported family history of breast cancer: mother. The patient had a prior left breast biopsy. PRIOR EXAMS 07/04/2023 outside priors 06/03/2022, 04/25/2021, 12/31/2019, and 08/28/2017. MAMMOGRAPHY TECHNIQUE: 2D and 3D (tomosynthesis) digital mammographic views obtained, with additional images as needed for full coverage. Current study was also evaluated with a Computer Aided Detection (CAD) system. DENSITY C. The breasts are heterogeneously dense, which may obscure small masses. MAMMOGRAPHY FINDINGS Bilateral: Biopsy markers present. There are no suspicious masses, calcifications, or other findings in the breast. IMPRESSION: * No evidence of malignancy with benign findings. RECOMMENDATIONS Bilateral * Annual screening mammography. OVERALL ASSESSMENT CATEGORY BI-RADS-2: Benign. The [employer] recommends annual screening mammography beginning at age 40 for women with average risk of breast cancer. ELECTRONICALLY SIGNED: Kathy Garcia M.D. on 08/21/2024 at 04:40:09 PM PT Interpreting Station ID: [id number]
--- NOTE | 2024-08-21 14:06 | DI.US.S_ITS ---
PROCEDURE: US ARTERIAL DUPLEX UE LT INDICATIONS: Numbness in finger TECHNIQUE: Color and pulse Doppler interrogation was performed of left upper extremity arterial systems, with image documentation. COMPARISON: None. FINDINGS: Left upper extremity: Subclavian artery (mid): 63 cm/sec, with triphasic flow. Axillary artery: 47 cm/sec, with triphasic flow. Brachial artery (mid): 109 cm/sec, with triphasic flow. Radial artery (proximal): 57 cm/sec, with triphasic flow. Radial artery (mid): 49 cm/sec, with biphasic flow. Radial artery (distal): 34 cm/sec, with biphasic flow. Ulnar artery (proximal): 29 cm/sec, with biphasic flow. Ulnar artery (mid): 50 cm/sec. with biphasic/triphasic flow. Ulnar artery (distal): 37 cm/sec, with biphasic flow. Braden-scale imaging description: No appreciable calcific plaque, mild soft plaque noted in the upper brachial artery region of the left upper extremity. IMPRESSION: Mild soft plaque left brachial artery without significant stenosis in that area or elsewhere. Dictated by: Bj Singh M.D. on 08/22/2024 at 14:40 Approved by: Bj Singh M.D. on 08/22/2024 at 14:45
--- NOTE | 2024-08-21 14:06 | DI.RAD.S_ITS ---
PROCEDURE: XR DEXA AXIAL SKELETON INDICATIONS: Post menopause COMPARISON: None. FINDINGS: Lumbar Spine: Bone mineral density 0.660 g/cm2, T score -3.5. Left Femoral Neck: Bone mineral density 0.592 g/cm2, T score -2.3. Left Hip: Bone mineral density 0.711 g/cm2, T score -1.9. Fracture Risk Calculation (when applicable): 10-year fracture risk of a major osteoporotic fracture 25 percent and of a hip fracture 4.7 percent. (T score greater or equal to -1.0 to: NORMAL) (T score from -1.1 to -2.4: OSTEOPENIA) (T score less than or equal to -2.5: OSTEOPOROSIS) IMPRESSION: Osteoporosis by WHO classification. Follow-up guidelines as follows: Osteoporosis: Consider a repeat DEXA and Vertebral Fracture Assessment (VFA) exam in 2 years or sooner if medically necessary, to reassess this patient's status. Osteopenia: Consider a repeat DEXA in 2-3 years to reassess this patient's status, or if there is a new clinical indication. Normal: Consider a repeat DEXA in 5 years or sooner, or if there is a new clinical indication. All treatment decisions require clinical judgment and consideration of individual patient factors, including patient preferences, comorbidities, previous drug use, risk factors not captured in the FRAX model (e.g., frailty, falls, vitamin D deficiency, increased bone turnover, interval significant decline in bone density ) and possible under- or over-estimation of fracture risk by FRAX. In addition, the NOF Guide recommends that FDA-approved medical therapies be considered in postmenopausal women and men age >= 50 years with a: * Hip or vertebral (clinical or morphometric) fracture * T-score of <=-2.5 at the spine or hip * Ten-year fracture probability by FRAX of >= 3% for hip fracture or >=20% for major osteoporotic fracture. Dictated by: Denny Hall M.D. on 08/21/2024 at 15:48 Approved by: Denny Hall M.D. on 08/21/2024 at 15:50
== END ==
PROVIDERS: PCP Family Medicine; Referring Provider Family Medicine; Visit Provider Family Medicine
DX: Z12.31 Encounter for screening mammogram for malignant neoplasm of breast (principal); Z80.3 Family history of malignant neoplasm of breast; R92.333 Mammographic heterogeneous density, bilateral breasts; N20.0 Calculus of kidney; Z87.442 Personal history of urinary calculi; I70.208 Unspecified atherosclerosis of native arteries of extremities, other extremity; R20.0 Anesthesia of skin; M81.0 Age-related osteoporosis without current pathological fracture; Z78.0 Asymptomatic menopausal state
CPT/HCPCS: 74018; 77063; 77067; 77080; 93931

== ENCOUNTER → 2024-12-31 10:33 | Outpatient (CLI) | payer BC, SELFPAY ==
[2024-12-31 11:51] LABS: Alanine Aminotransferase 46 IU/L (<35); Albumin 4.2 g/dL (3.5-5.0); Albumin Globulin Ratio 1.9 (1.0-2.8); Alkaline Phosphatase 84 U/L (38-126); Blood Urea Nitrogen 17 mg/dL (7-17); Calcium 9.5 mg/dL (8.4-10.2); Carbon Dioxide 26 mmol/L (22-32); Chloride 108 mmol/L (98-107); Estimated Glomerular Filt Rate > 60 mL/min (>60); Globulin 2.2 g/dL (1.7-4.1); Glucose 84 mg/dL (70-99); HEMOLYSIS < 15 (0-50); Potassium 4.3 mmol/L (3.4-5.1); Sodium 140 mmol/L (137-145); Total Protein 6.4 g/dL (6.3-8.2)
== END ==
PROVIDERS: PCP Family Medicine; Referring Provider Family Medicine; Visit Provider Family Medicine
DX: M81.0 Age-related osteoporosis without current pathological fracture (principal)
CPT/HCPCS: 36415; 80053

== ENCOUNTER → 2025-03-16 07:39 | Outpatient (CLI) | payer BC, SELFPAY ==
[2025-03-16 08:46] LABS: Alanine Aminotransferase 29 IU/L (<35); Albumin 3.8 g/dL (3.5-5.0); Albumin Globulin Ratio 1.7 (1.0-2.8); Alkaline Phosphatase 79 U/L (38-126); Globulin 2.3 g/dL (1.7-4.1); HEMOLYSIS < 15 (0-50); Total Protein 6.1 g/dL (6.3-8.2)
== END ==
PROVIDERS: PCP Family Medicine; Referring Provider Family Medicine; Visit Provider Registered Nurse Medical-Surgical
DX: R74.01 Elevation of levels of liver transaminase levels (principal)
CPT/HCPCS: 36415; 80076

== ENCOUNTER → 2025-03-20 13:44 | Outpatient (CLI) | payer BC, SELFPAY ==
--- NOTE | 2025-03-20 13:44 | DI.CT.S_ITS ---
PROCEDURE: CT KIDNEY URETER BLADDER (KUB) INDICATIONS: 64 y/o F w/ nephrolithiasis, concern for right ureterolith TECHNIQUE: CT of the abdomen and pelvis was obtained without intravenous contrast. Coronal and sagittal reformats were performed. For radiation dose reduction, the following was used: automated exposure control, adjustment of mA and/or kV according to patient size. COMPARISON: [facility], CT, CT KIDNEY URETER BLADDER (KUB), 03/07/2024, 7:57. FINDINGS: Image quality: Diagnostic. Lower Chest: No significant findings. ABDOMEN: Liver: No contour-deforming mass. Gallbladder: No radiopaque gallstones or wall thickening. Biliary ducts: No biliary dilation. Pancreas: No ductal dilation. Spleen: Size is within normal limits. Adrenal Glands: No adrenal nodules. Kidneys and Ureters: There is no hydronephrosis. On the left there are 2 nephroliths in the lower pole which are essentially stable, greatest from the interpolar region previously. On the right there is a 5 mm nonobstructing stone in the lower pole, essentially stable. Stomach and Bowel: Normal colonic caliber, without significant wall thickening. Stable appearance of anti-reflux device near the GE junction as well as postoperative changes Peritoneum: No abnormal intraperitoneal fluid. No free air. Ventral Wall: No significant hernia. Abdominal Nodes: No retroperitoneal or mesenteric adenopathy by size criteria. Vessels: Aorta and inferior vena cava are normal in size. PELVIS: Pelvic Organs: Unremarkable. Bladder: Unremarkable. Pelvic Nodes: No enlarged lymph nodes. Miscellaneous: No inguinal hernias are seen. Bones: No aggressive osseous abnormality. IMPRESSION: Stable bilateral nonobstructing renal calculi, no ureteral calculi or signs of obstructive uropathy. Dictated by: Edward Alejandra M.D. on 03/20/2025 at 14:59 Approved by: Edward Alejandra M.D. on 03/20/2025 at 15:06
== END ==
PROVIDERS: PCP Family Medicine; Referring Provider Urology; Visit Provider Urology
DX: N20.0 Calculus of kidney (principal)
CPT/HCPCS: 74176